=== PATIENT | male | born 1985 | race African-American/Black ===

== ENCOUNTER 2019-05-10 09:44 | Emergency (ER) | payer OTHER ==
[~2019-05-10] VITALS: Ht 175.3 cm; Wt 64.0 kg
[2019-05-10] MEDS ORDERED: TOPUD PO (10:36)
[2019-05-10] MEDS ORDERED: ACETAMINOPHEN 325MG TABLET PO STA (12:14)
[2019-05-10 13:16] LABS: BASOPHILS % 0.6 % (0.0-2.0); EOSINOPHILS % 9.7 % (0.0-5.0); HEMATOCRIT. 46.4 % (42.0-52.0); HEMOGLOBIN. 16.1 g/dL (14.0-18.0); LYMPHOCYTES % 36.6 % (20.0-50.0); MEAN CORPUSCULAR HEMOGLOBIN 31.9 pg (28.0-32.0); MEAN CORPUSCULAR VOLUME 91.6 fL (80.0-94.0); MEAN PLATELET VOLUME 8.3 fl (7.4-10.4); NEUTROPHILS % 44.1 % (40.0-76.0); PLATELET 227 x1000/uL (130-400); RED BLOOD CELL COUNT 5.07 mill/uL (4.7-6.1); RED CELL DISTRIBUTION WIDTH 12.6 % (11.6-14.6)
[2019-05-10 13:21] LABS: CHLORIDE 104 mEq/L (98-107)
[2019-05-10 15:17] VITALS: BP 114/79
== END 2019-05-10 15:17 | disposition home or self-care (01) ==
LOC: ER 09:44
DX: R19.7 Diarrhea, unspecified (principal); Z88.0 Allergy status to penicillin
CPT/HCPCS: 36415; 99283